=== PATIENT | female | born 1960 | race Caucasian/White ===

== ENCOUNTER 2021-12-25 06:15 | Day surgery (SDC) | payer BC ==
[2021-12-23 11:19] VITALS: BMI 26.2
[2021-12-25] MEDS ORDERED: Lidocaine 1% MPF 2 ML VIAL ONE (06:43)
[2021-12-25] MEDS ORDERED: PROPOFOL 20 ML ONE (06:59)
[2021-12-25] MEDS ORDERED: Fentanyl 100 MCG/2 ML VIAL ONE (06:59)
[2021-12-25] MEDS ORDERED: Lidocaine 1% PF 5 ML VIAL ONE (07:02)
== END 2021-12-25 08:42 | disposition home or self-care (01) ==
LOC: CSHSDC 06:15
PROVIDERS: ATTEND Internal Medicine Gastroenterology
PROC: 0DB68ZZ Excision of Stomach, Via Natural or Artificial Opening Endoscopic (ICD-10-PCS; principal; 2021-12-25)
PROC: 0DB78ZZ Excision of Stomach, Pylorus, Via Natural or Artificial Opening Endoscopic (ICD-10-PCS; principal; 2021-12-25)
PROC: 0D757ZZ Dilation of Esophagus, Via Natural or Artificial Opening (ICD-10-PCS; principal; 2021-12-25)
DX: K29.50 Unspecified chronic gastritis without bleeding (principal); K31.7 Polyp of stomach and duodenum; R13.10 Dysphagia, unspecified; K21.9 Gastro-esophageal reflux disease without esophagitis; I10 Essential (primary) hypertension; M35.00 Sjogren syndrome, unspecified; L40.9 Psoriasis, unspecified
CPT/HCPCS: 88305; J2704; J3010

== ENCOUNTER 2022-01-08 15:51 | Outpatient (CLI) | payer BC | END 2022-01-08 15:52 | disposition home or self-care (01) | LOC: CSHULT 15:51 | PROVIDERS: ATTEND Internal Medicine Gastroenterology | DX: R13.10 Dysphagia, unspecified (principal) | CPT/HCPCS: 76536 ==